=== PATIENT | female | born 1970 | race Caucasian/White ===

== ENCOUNTER 2019-08-23 05:23 | Observation (INO) ==
--- NOTE | 2019-08-17 13:59 | Anesthesiology Consultation ---
Date of Service August 17, 2019 Assessment & Plan (1) Encounter for pre-operative examination: Chart Review Chart Review: Acceptable Risk for Surgery and Patient NOT seen in Pre Admission Testing Will check an ECG on am of surgery for baseline secondary to Age 49 and combined procedure with abdominoplasty. Pre op scopolomine patch ordered for hx PONV Consults Requested none History Surgery Operation Date: 08/23/19 07:30 Proposed Procedures p Bilateral Breast Augmentation with Silicone Implants, - Vicki Zhao MD s Abdominoplasty - Vicki Zhao MD Height/Weight Height: 5 ft 6 in Weight: 61.235 kg Allergies Allergy/AdvReac Type Severity Reaction Status Date / Time No Known Allergies Allergy Verified 08/11/19 08:51 Medications Home Medications Medication Instructions Recorded Confirmed Last Taken L.acid-B.bifidum-B.animal-FOS 100 mg PO DAILY 08/11/19 08/11/19 Unknown [Probiotic Complex] biotin 1 mg PO DAILY 08/11/19 08/11/19 Unknown cephalexin [Keflex] 500 mg PO TID 08/11/19 08/11/19 Unknown cyanocobalamin (vitamin B-12) 1,000 mcg PO DAILY 08/11/19 08/11/19 Unknown [Vitamin B-12] magnesium 250 mg PO DAILY 08/11/19 08/11/19 Unknown bwekheqimwrc-pcaz-igcbr acid 1 tab PO DAILY 08/11/19 08/11/19 Unknown [Centrum Complete] potassium 99 mg PO DAILY 08/11/19 08/11/19 Unknown ondansetron HCl 4 mg tablet 4 mg PO Q6H PRN 3 Days #12 tab 08/16/19 Unknown Past Medical History Medical History Kidney stones Nausea and vomiting after administration of anesthetic agent Past Family History Family History Mother Family history of diabetes mellitus Past Surgical History Surgical History History of bilateral tubal ligation History of lithotripsy S/P laparoscopic hysterectomy Social History Smoking Status: Never smoker Do You Dip or Chew Tobacco: No Hx Alcohol Use: Yes Alcohol type: wine alcohol intake frequency: a few times a month Hx Substance Use: No substance use type: does not use
[2019-08-23] MEDS ORDERED: LR 15ML/HR IV SCH (06:00)
[2019-08-23] MEDS ORDERED: SCOPOLAMINE 1.5 MG TDSY TD SCH (06:00)
[2019-08-23] MEDS ORDERED: MIDAZOLAM HCL 1 MG/ML 2ML VIAL ONE (06:50)
[2019-08-23] MEDS ORDERED: fentaNYL citrate 100 MCG/2 ML VIAL ONE (06:50)
[2019-08-23] MEDS ORDERED: ACETAMINOPHEN 1000 MG/100 ML IV IV ONE (06:52)
[2019-08-23] MEDS ORDERED: LIDOCAINE/EPINEPHRINE 1% 20 ML VIAL ONE ×2 (06:54→08:40)
[2019-08-23] MEDS ORDERED: BUPIVACAINE 0.25% 30 ML VIAL ONE (06:54)
[2019-08-23] MEDS ORDERED: CEFAZOLIN 250 MG/ML 1 GM VIAL ONE ×3 (06:54→12:21)
[2019-08-23] MEDS ORDERED: GENTAMICIN SULFATE 40 MG/ML 2 ML VIAL ONE ×2 (06:54→07:43)
[2019-08-23] MEDS ORDERED: BACITRACIN INJ 50,000 UNIT VIAL ONE ×2 (06:54→07:43)
[2019-08-23] MEDS ORDERED: EPINEPHrine INJ 1 MG/ML AMP ONE (07:00)
--- NOTE | 2019-08-23 07:27 | History & Physical Bridge Note ---
Date of Service August 23, 2019 History & Physical Bridge Note I have examined the patient, reviewed the History & Physical and in the interval since the performance of the History & Physical I have noted the following changes of clinical significance: no changes noted
[2019-08-23] MEDS ORDERED: ATROPINE SULFATE 0.1 MG/ML 10ML SYR IV PRN (07:32)
[2019-08-23] MEDS ORDERED: fentaNYL citrate 100 MCG/2 ML VIAL IV PRN (07:32)
[2019-08-23] MEDS ORDERED: PROMETHAZINE HCL 6.25 MG in SODIUM CHLORIDE 0.9% 50 ML IV PRN (07:32)
[2019-08-23] MEDS ORDERED: ePHEDrine sulfate 50 MG/ML AMP IV PRN (07:32)
[2019-08-23] MEDS ORDERED: ONDANSETRON INJ 2 MG/ML 2 ML VIAL IV PRN ×2 (07:32→12:58)
[2019-08-23] MEDS ORDERED: HYDROmorphone INJ 2 MG/ML SYR/VIAL IV PRN (07:32)
[2019-08-23] MEDS ORDERED: CEFAZOLIN 2,000 MG/15 ML IV PUSH IV ONE (07:37)
[2019-08-23] MEDS ORDERED: KETAMINE HCL INJ 50 MG/ML 10 ML VIAL ONE (07:59)
[2019-08-23] MEDS ORDERED: HYDROmorphone INJ 2 MG/ML SYR/VIAL ONE (07:59)
[2019-08-23] MEDS ORDERED: DiphenhydrAMINE HCL 50 MG/ML VIAL ONE (08:28)
[2019-08-23] MEDS ORDERED: LIDOCAINE HCL 2% 2 ML VIAL/AMP(20MG/ML) INFIL ONE (08:28)
[2019-08-23] MEDS ORDERED: ONDANSETRON INJ 2 MG/ML 2 ML VIAL ONE (08:28)
[2019-08-23] MEDS ORDERED: raNITIdine HCl 25 MG/ML VIAL IV ONE (08:28)
[2019-08-23] MEDS ORDERED: LARYING-O-JET KIT (LTA) ONE (08:28)
[2019-08-23] MEDS ORDERED: ePHEDrine sulfate 50 MG/ML SYR ONE ×2 (08:28→11:36)
[2019-08-23] MEDS ORDERED: ROCURONIUM BROMIDE 10 MG/ML 5 ML VIAL ONE ×3 (08:28→11:36)
[2019-08-23] MEDS ORDERED: GLYCOPYRROLATE 0.2 MG/ML VIAL ONE (08:28)
[2019-08-23] MEDS ORDERED: PROPOFOL IV EMULSION 10 MG/ML 20 ML VIAL IV ONE ×2 (08:28→11:37)
[2019-08-23] MEDS ORDERED: METOCLOPRAMIDE HCL INJ 5 MG/ML 2 ML VIAL ONE (08:28)
[2019-08-23] MEDS ORDERED: NEOSTIGMINE METHYLSULFATE 5 MG/5 ML SYR ONE (11:36)
[2019-08-23] MEDS: LIDOCAINE HCL 1% 20 ML VIAL ONE ×2 (11:55→12:05)
[2019-08-23] MEDS ORDERED: CEFAZOLIN 2000MG 2,000 MG/15 ML SYR IV STA (12:23)
--- NOTE | 2019-08-23 12:41 | Post Operative Brief Note ---
Immediate Post Op Note v1 Date of Surgery August 23, 2019 Pre & Post Diagnosis Operation Date: 08/23/19 07:30 Pre-Op Diagnosis: Encounter for Cosmetic Surgery, Hypomastia Post-Op Diagnosis: Encounter for Cosmetic Surgery, Hypomastia I identified the patient and participated in the time-out.: Yes Procedure Operation Date: 08/23/19 07:30 Actual Procedures p Bilateral Breast Augmentation with Silicone Implants,(Bilateral) - Vicki Zhao MD s Abdominoplasty(Not Applicable) - Vicki Zhao MD Surgeon Vicki Zhao MD Inweaver Analia Zhou PA-C Estimated Blood Loss 20 Findings Consistent with Post-Op Diagnosis Drains Jam Drain (times two implanted per surgeon) and Gramajo Catheter (16 maltese 10ml balloon; patent clean dry intact)
[2019-08-23] MEDS ORDERED: MoRPHine SULFATE 2 MG/ML CARP IV PRN (12:58)
[2019-08-23] MEDS ORDERED: DiphenhydrAMINE HCL 50 MG/ML VIAL IV PRN (12:58)
[2019-08-23] MEDS ORDERED: LORazepam 0.5 MG TAB PO PRN (12:58)
[2019-08-23] MEDS ORDERED: ACETAMINOPHEN 325 MG TAB PO PRN (12:58)
[2019-08-23] MEDS ORDERED: PROMETHAZINE HCL 12.5 MG in SODIUM CHLORIDE 0.9% 50 ML IV PRN (12:58)
[2019-08-23] MEDS ORDERED: MoRPHine SULFATE 4 MG/ML 1 ML CARP\\VIAL IV PRN ×2 (12:58)
[2019-08-23] MEDS ORDERED: OXYCODONE/ACETAMINOPHEN 5mg/325mg TAB PO PRN (12:58)
--- NOTE | 2019-08-23 13:52 | Operative Report ---
PG Post Operative Report Pre & Post Diagnosis Operation Date: 08/23/19 07:30 Pre-Op Diagnosis: Encounter for Cosmetic Surgery, Hypomastia Post-Op Diagnosis: Encounter for Cosmetic Surgery, Hypomastia I identified the patient and participated in the time-out.: Yes Procedure Operation Date: 08/23/19 07:30 Actual Procedures p Bilateral Breast Augmentation with Silicone Implants,(Bilateral) - Vicki Zhao MD s Abdominoplasty(Not Applicable) - Vicki Zhao MD Surgeon Vicki Zhao MD Geodesist Analia Zhou PA-C Estimated Blood Loss 20 Findings Consistent with Post-Op Diagnosis Specimens none Drains JPx2 Anesthesia Type General Complications none Disposition Disposition: Recovery Room Indications s/p 65 lb weight loss, desiring cosmetic improvement in breasts and abdomen Description of Procedure The risks, benefits, and alternatives of the procedure were explained to the patient, who agreed and signed consent. She was identified and marked in the preoperative holding area. She was brought to the operating room, olson catheter was placed, she was positioned supine and placed under general anesthesia without incident. Surgical site was prepped and draped sterilely. A time-out procedure was performed. Tegaderms were placed as a barrier over the nipple-areolar complexes bilaterally. Access incision was marked in the inframammary fold using medial border of the areola as the medial most aspect of the incision. 1% lidocaine with epinephrine was used to anesthetize the planned incisions as well as the breast parenchyma. A 15 blade scalpel was used to make the incision through skin and into underlying dermis. The incision was deepened using electrocautery through subcutaneous fat and breast parenchyma. I planned a dual plane 3 augmentation. The lateral border of the pectoralis major muscle was identified and elevated. A retropectoral pocket was created using lighted retractor and electrocautery. Dissection was first performed superiorly and laterally and then dissection was carried medially along the inframammary fold. Pectoralis major muscle fibers were divided using electrocautery, leaving the pectoralis fascia intact along the inframammary fold. Small tendinous attachments medially were divided using electrocautery, leaving the origin of the pectoralis intact along the sternum. Once I was satisfied with the pocket dissection, hemostasis was achieved with electrocautery. Following this, the wound was irrigated with saline and sizer implants were tried. I initially began with a 325 cc sizer (knowing that she was interested in about a 300 cc implant) which I placed into the pocket. The implant fit nicely into the pocket, closed easily and resulted no ptosis of skin.The sizer was removed, pocket was irrigated and packed using antibiotic soaked lap sponges and Marcaine. A similar dissection was undertaken on the right side. Once I was satisfied with the shape and the pocket size of both breasts, the pockets were inspected for hemostasis and again irrigated with triple antibiotic irrigation. Gloves were changed, instruments were wiped down and I selected a 325 cc smooth round Inspira Natrelle SSF silicone gel implant which was then placed in the left breast pocket. The position was checked and the implant was placed inferiorly as possible along the inframammary fold. Superficial fascia was re-approximated using 2-0 Vicryl interrupted sutures, followed by approximation of deep dermis using 2-0 Vicryl suture, superficial dermis using 3-0 PDS suture and closure of the incision using 3-0 Monocryl running subcuticular suture. An identical implant was selected for the right side and closure was performed in similar fashion. Dermabond was applied to both incisions. I reassessed my markings which included a lower horizontal abdominal incision with the midportion 7.5 cm above the vulvar commissure. Incision was marked bilaterally to the ASIS. I began by injecting 1% lidocaine with epinephrine along the planned incision. The lower abdominal incision was made using a 15- blade scalpel to incise epidermis and superficial dermis followed by electrocautery to incise deep dermis, subcutaneous fat, Rohit's fascia down to the abdominal wall. Care was taken to bevel superiorly in order to avoid encountering the inguinal region. Electrocautery was used to elevate the anterior abdominal skin flap ligating the perforating vessels with 3-0 Vicryl ties and electrocautery. Dissection was carried up to the level of the umbilicus in the midline. At this point, a 15-blade scalpel was used to circumscribe the umbilicus. A vertical midline incision was then made from the incision to the umbilicus and divided in the midline using electrocautery. The umbilicus was then dissected out using electrocautery down to abdominal wall. The umbilical stalk appeared viable throughout the procedure. I then continued my dissection cephalad to the xiphoid process, narrowing the width of dissection above the umbilicus. Plication of the rectus musculature was performed using 0- Prolene buried figure of 8 sutures, and then reinforced using a running 0- Prolene superior and inferior to the umbilicus. At this point, the bed was flexed and the mid portion of the superior skin flap was inset above the mons pubis using 2-0 Vicryl suture. Skin flaps were marked for excision. A 15-blade scalpel was used to make these incisions and the incision was deepened through dermis, subcutaneous fat, Rohit's fat using electrocautery. A 15 Algerian Jam drains were placed in the wound bed and brought out through a separate stab incision in the mons pubis. The drains were sutured into place using 3-0 nylon. The umbilicus was brought out through an inverted triangular incision in the abdominal wall. This was performed using a 15-blade scalpel. Prior to closure, a total of 10 mL of 0.25% Marcaine plain were injected into the fascia as well as along the incisions. Wound closure was then begun lateral to medial using 2-0 Vicryl Rohit's fascia sutures, 2-0 Vicryl deep dermal sutures, 2-0 PDO running superficial Quill suture, 3-0 Monocryl running subcuticular suture. Umbilicus was brought out through the inverted triangle incision and was sutured into place using 4-0 chromic half buried horizontal mattress sutures. The umbilicus was dressed using Xeroform and the incision was dressed using Dermabond Prineo followed by dry dressings and an abdominal binder. A surgical bra was placed. The procedure was tolerated well. The patient was awakened and transferred to recovery in satisfactory condition. Kristel Nichole PA-C was present and scrubbed throughout the entire procedure. I attest to the content of the Intraoperative Record and any orders documented therein. Any exceptions are noted below.
--- NOTE | 2019-08-23 14:22 | Anesthesiology Progress Note ---
Date of Service August 23, 2019 Anesthesia Post Procedure Vital Signs Vital Signs: Temp Pulse Pulse Resp BP BP Pulse Ox 08/23/19 13:35 105 H 16 126/77 98 08/23/19 13:25 36.5 C 104 H 17 127/79 100 08/23/19 13:15 110 H 17 133/81 100 08/23/19 13:05 106 H 16 132/78 100 08/23/19 12:58 36.1 C L 114 H 14 130/87 100 08/23/19 05:39 36.6 C 82 18 144/95 H 100 Transfer of Care Handoff Completed per policy Notes Mental Status: alert / awake / arousable Patient Amnestic to Procedure: Yes Nausea / Vomiting: adequately controlled Pain: adequately controlled Airway Patency, RR, SpO2: stable & adequate BP & HR: stable & adequate Hydration State: stable & adequate Anesthetic Complications: no major complications apparent
[2019-08-23] MEDS: CHECK SCOPOLAMINE PATCH PLACEMENT SCH (16:00)
[2019-08-23] MEDS: D5W AND 1/2NSS + 20MEQ KCL 20 MEQ/1,000 ML BAG IV SCH (18:18)
[2019-08-23] MEDS ORDERED: Nursing to Pharmacy Communication ONE ×2 (18:33→18:52)
[2019-08-23] MEDS ORDERED: ACETAMINOPHEN 1,000 MG/100 ML VIAL IV ONE (19:00)
[2019-08-23] MEDS: HYDROmorphone INJ 0.5 MG/0.5 ML SYR IV PRN (19:06)
[2019-08-23] MEDS ORDERED: CYCLOBENZAPRINE HCL 5 MG TAB PO PRN (19:21)
--- NOTE | 2019-08-23 19:33 | Surgery Progress Note ---
Date of Service August 23, 2019 Assessment & Plan (1) Encounter for cosmetic surgery: Suspect tachycardia due to pain as BP, urine, CLARIBEL output are all ok and no clinical signs of VTE. Ice ordered to breasts, cyclobenzaprine ,Ofirmev, Dilaudid ordered for pain control. Discussed with nursing staff. If tachycardia persists with adequate pain control or signs/sxs of VTE noted, will initiate workup. Subjective Contacted by nursing staff re mild tachycardia. Patient seen at bedside, complaining of pain across the chest, no inspirational pain or shortness of breath, no abdominal pain. Per nursing, olson output 800 cc in bag. Physical Exam Physical Exam: dressings /c/d/i to both breasts and abdomen. CLARIBEL's serosanguinous-amounts not totaled yet but appears minimal Results & Data Vital Signs (Past 12 Hours) Vital Signs Temp Pulse Pulse Resp BP Pulse Ox 08/23/19 17:13 97.9 F 104 H 16 120/77 97 08/23/19 16:17 98.2 F 108 H 16 125/80 97 08/23/19 15:03 97.7 F 108 H 16 124/81 98 08/23/19 14:30 107 H 16 128/77 98 08/23/19 14:00 97.7 F 111 H 16 127/74 100 08/23/19 13:35 105 H 16 126/77 98 08/23/19 13:25 97.7 F 104 H 17 127/79 100 08/23/19 13:15 110 H 17 133/81 100 08/23/19 13:05 106 H 16 132/78 100 08/23/19 12:58 97.0 F L 114 H 14 130/87 100 PG Care Time/CCT Total # of Minutes Spent Total Time Spent with Patient: Total time spent is greater than 50% in coordination of care (as documented) at patient's floor/unit and/or counseling patient:
[2019-08-23] MEDS: CEFAZOLIN 2000MG 2,000 MG/15 ML SYR IV SCH (21:11)
[2019-08-24] MEDS: HYDROmorphone INJ 1 MG/ML SYRINGE IV PRN ×2 (00:12→03:16)
[2019-08-24] MEDS: CHECK SCOPOLAMINE PATCH PLACEMENT SCH (00:13)
[2019-08-24] MEDS ORDERED: ACETAMINOPHEN 1,000 MG/100 ML VIAL IV PRN (02:00)
[2019-08-24] MEDS ORDERED: ACETAMINOPHEN 1,000 MG/100 ML VIAL IV SCH (02:00)
[2019-08-24] MEDS: CEFAZOLIN 2000MG 2,000 MG/15 ML SYR IV SCH (03:17)
[2019-08-24] MEDS: OXYCODONE/ACETAMINOPHEN 5mg/325mg TAB PO PRN ×2 (05:06→11:10)
[2019-08-24] MEDS ORDERED: CEFAZOLIN 2000MG 2,000 MG/15 ML SYR IV SCH (06:00)
[2019-08-24 06:02] LABS: Creatinine Clr Calc Pharmacy 96.5 ml/min; Est GFR (African American) 120.2; Est GFR (Non-African American) 103.7
[2019-08-24] MEDS: HYDROmorphone INJ 0.5 MG/0.5 ML SYR IV PRN (06:09)
--- NOTE | 2019-08-24 06:53 | Surgery Progress Note ---
Date of Service August 24, 2019 Assessment & Plan (1) History of augmentation of both breasts: (2) S/P abdominoplasty: Patient is much improved this AM- pain controlled with both PO and IV pain medication at this time. Patient is aware that she will only have PO pain med at home and will make sure that her pain is controlled with PO pain medication prior to discharge. Patient is leaning towards going home later today, but will need to void on own and make sure that pain is controlled with PO pain med. Gramajo to be removed by nursing and patient to receive Lovenox at 9AM- do not give Lovenox in abdomen. We discussed that drains x 2 will remain at discharge and we reviewed home drain care. She is aware that she is to measure drainage output from each drain. Patient to follow-up in office tomorrow. All questions answered. She was encouraged to call our office with any questions or concerns. Subjective Patient is resting in bed as I entered the room. Heart rate within normal limits this AM. She reports that her pain is much better controlled this morning. She denies any chest pain or shortness of breath. She denies nausea or vomiting. Patient is tolerating a regular diet, but is not very hungry. Physical Exam Physical Exam: Abdominal binder and surgical bra in place- removed for physical exam. Surgical dressings are clean, dry, intact. Patient is understandably sore at incision sites. Surgical dressings in place. Both binders reattached. Results & Data Vital Signs (Past 12 Hours) Vital Signs Temp Pulse Pulse Resp BP Pulse Ox 08/24/19 03:26 37.1 C 82 16 114/76 95 08/24/19 00:18 36.8 C 92 H 18 115/73 97 08/23/19 20:03 36.4 C L 97 H 16 114/76 94 08/23/19 19:40 99 H PG Care Time/CCT Total # of Minutes Spent Total Time Spent with Patient: Total time spent is greater than 50% in coordination of care (as documented) at patient's floor/unit and/or counseling patient:
--- NOTE | 2019-08-24 08:18 | Anesthesiology Progress Note ---
Date of Service August 24, 2019 Anesthesia Post Procedure Vital Signs Vital Signs: Temp Pulse Pulse Resp BP Pulse Ox 08/24/19 07:24 36.4 C L 90 18 114/72 95 08/24/19 03:26 37.1 C 82 16 114/76 95 08/24/19 00:18 36.8 C 92 H 18 115/73 97 08/23/19 20:03 36.4 C L 97 H 16 114/76 94 08/23/19 19:40 99 H 08/23/19 17:13 36.6 C 104 H 16 120/77 97 08/23/19 16:17 36.8 C 108 H 16 125/80 97 08/23/19 15:03 36.5 C 108 H 16 124/81 98 08/23/19 14:30 107 H 16 128/77 98 08/23/19 14:00 36.5 C 111 H 16 127/74 100 08/23/19 13:35 105 H 16 126/77 98 08/23/19 13:25 36.5 C 104 H 17 127/79 100 08/23/19 13:15 110 H 17 133/81 100 08/23/19 13:05 106 H 16 132/78 100 08/23/19 12:58 36.1 C L 114 H 14 130/87 100 Pain Intensity Bilateral Breast: Pain Intensity: 5 Bilateral Abdomen: Pain Intensity: 5 Notes Mental Status: alert / awake / arousable Patient Amnestic to Procedure: Yes Nausea / Vomiting: adequately controlled Pain: adequately controlled Airway Patency, RR, SpO2: stable & adequate BP & HR: stable & adequate Hydration State: stable & adequate Anesthetic Complications: no major complications apparent
[2019-08-24] MEDS: D5W AND 1/2NSS + 20MEQ KCL 20 MEQ/1,000 ML BAG IV SCH (08:28)
[2019-08-24] MEDS ORDERED: MULTIVITAMIN TAB PO SCH (09:00)
[2019-08-24] MEDS ORDERED: ENOXAPARIN INJ 40 MG/0.4 ML SYR SQ SCH (09:00)
[2019-08-25] MEDS ORDERED: ACETAMINOPHEN 500 MG TAB PO SCH (06:00)
--- NOTE | 2019-08-26 14:48 | Discharge Summary ---
Date of Service August 26, 2019 Admission HPI Per Admitting Provider please see admission H and P. Admission Exam Per Admitting Provider please see admission H & P. Principal Diagnosis Encounter for cosmetic surgery. Discharge Data Allergies Allergy/AdvReac Type Severity Reaction Status Date / Time No Known Allergies Allergy Verified 08/23/19 05:37 Procedures Performed Operation Date: 08/23/19 07:30 Actual Procedures p Bilateral Breast Augmentation with Silicone Implants,(Bilateral) - Vicki Zhao MD s Abdominoplasty(Not Applicable) - Vicki Zhao MD Hospital Course (1) History of augmentation of both breasts: (2) S/P abdominoplasty: Pretty is a 48-year-old female who presented to [facility] for Encounter for Cosmetic Surgery. She was taken to the OR and underwent Bilateral Breast Augmentation with Silicone Implants (325 cc smooth round Inspira Natrelle SSF silicone gel implant) and Abdominoplasty. Gramajo catheter was placed prior to start of procedure. Intraoperatively, 2 CLARIBEL drains were placed in the abdomen. There were no intraoperative complications. She was taken to recovery and transferred to med/surg for observation. Roughly [address] Zhao was contacted by nursing staff re mild tachycardia. Patient was seen at bedside, complaining of pain across the chest, no inspirational pain or shortness of breath, no abdominal pain. Mild tachycardia was most likely due to pain and Dr. Zhao adjusted pain medication. On POD #1, she was feeling a bit sore, but was overall doing well. Her vital signs were within normal limits. Patient's pain across the chest had resolved overnight. She was tolerating a regular diet. Gramajo catheter was removed and patient was voiding on her own. She was ambulating without issue. On exam, drains in place. Surgical bra and abdominal binder in place- removed and surgical dressings clean and dry. She was discharged home with instructions to follow-up in the office in 1 day. All questions answered Patient is much improved this AM- pain controlled with both PO and IV pain medication at this time. Patient is aware that she will only have PO pain med at home and will make sure that her pain is controlled with PO pain medication prior to discharge. Patient is leaning towards going home later today, but will need to void on own and make sure that pain is controlled with PO pain med. Gramajo to be removed by nursing and patient to receive Lovenox at 9AM- do not give Lovenox in abdomen. We discussed that drains x 2 will remain at discharge and we reviewed home drain care. She is aware that she is to measure drainage output from each drain. Patient to follow-up in office tomorrow. All questions answered. She was encouraged to call our office with any questions or concerns. Total Time Total Time Spent Total Time Spent (In Minutes): 10 Discharge Plan Discharge Items Patient Disposition: Home - Self-Care Reason For Visit: Encounter for Cosmetic Surgery, Hypomastia Discharge Diagnosis: Encounter for Cosmetic Surgery, Hypomastia Activity: As commented below Non-emergency contact: Surgeon Call non-emergency contact if: you have any medication questions, your pain is not controlled, your temperature is above 101.5, your wound has increased redness and your wound has increased drainage Follow-up/Referrals: Jamilah Dowell [Primary Care Provider] - Diet: Regular Addtl Attending Provider Instructions: ACTIVITY RECOMMENDATIONS: __Normal activities _X_No bending, lifting or straining _X_No driving __Driving allowed when you are off pain medications _X_Walking permitted __You should have help at home for ___ days DRESSINGS: __No dressings required _X_Keep dressings dry/in place until first office visit __Remove dressings ___ and leave dressings off __Apply ice ___ days __Remove dressings and reapply garment __Apply antibiotic ointment (Bacitracin, Neosporin, etc) to wounds 3-4 times/day for 10 days BATHING: _X_Keep dressings dry _X_Sponge bathing permitted- Keep water away from surgical dressings. __Showering permitted _X_No swimming, hot tubs or soaking in a tub MEDICATIONS: Resume previous medications unless instructed otherwise by your surgeon. _X_Do not use aspirin, Motrin, Advil or Ibuprofen as these may promote bleeding. Please use Tylenol. _X_Prescription(s) provided: Prescriptions for both post-operative pain medication and an antibiotic were provided to you at your last office visit. Please use as prescribed. If you have any questions about your medications, please call our office at [phone]. OTHER INSTRUCTIONS: _X_Record drain output 2-3 times per day SPECIAL CARE INSTRUCTIONS: * It is normal to have a mild fever after surgery. If your temperature is higher than 101.5 degrees F, please call the office at [phone]. * Constipation is a typical side effect of pain medication. An atsg-cda-jbzviha stool softener will help relieve this. * Leaking around surgical drains may occur and should not cause concern. Sometimes these drains become clogged. If this happens, remove the bulb and milk the clot out of the tube, then replace the bulb. * Drainage from wounds after liposuction is normal and should be expected. Garments will become soiled. You should protect furniture and bedding. This drainage should mostly subside within 2-3 days. Leave garments in place unless instructed to remove them. * If you have unusual drainage from a wound or are concerned you have an infect ion or have any questions or concerns, please call the office at [phone]. FOLLOW UP VISIT: If not already scheduled, please call the office, , when you return home after surgery to schedule an appointment to be seen in __1_ day. Pending Studies at Discharge: No Stand-Alone Forms: My [facility] [employer], Opioid Pain Management, Smoking Cessation Medications and DC Order Prescriptions: New ondansetron HCl [Zofran] 4 mg tablet 4 mg PO Q6H PRN (Reason: nausea and vomiting) 3 Days Qty: 12 RF: 0 Continued ondansetron HCl [Zofran] 4 mg tablet 4 mg PO Q6H PRN (Reason: nausea and vomiting) 3 Days Qty: 12 RF: 0 cyanocobalamin (vitamin B-12) [Vitamin B-12] 1,000 mcg Tablet 1,000 mcg PO DAILY RF: 0 potassium 99 mg Tablet 99 mg PO DAILY RF: 0 magnesium 250 mg Tablet 250 mg PO DAILY RF: 0 biotin 1 mg Tablet 1 mg PO DAILY RF: 0 Centrum Complete 18-400 mg-mcg Tablet 1 tab PO DAILY RF: 0 Probiotic Complex 25 billion cell -100 mg Capsule 100 mg PO DAILY RF: 0 cephalexin [Keflex] 500 mg capsule 500 mg PO TID RF: 0 acetaminophen [Tylenol Extra Strength] 500 mg Tablet 1,000 mg PO Q6H PRN (Reason: Pain) RF: 0 No Action oxycodone-acetaminophen [Percocet] 5-325 mg tablet 1 tab PO Q4H PRN (Reason: pain) 3 Days Qty: 18 RF: 0 Discharge Orders: Discharge Order (Routine); Ordered 08/24/19 Ordered By: Kristel Jain/Other Patient Handouts: DVT Prevent, Tube Harry Looney Drainage Care Admission Data Admit Date/Time: 08/23/19 13:02 Attending Provider: Vicki Zhao Admit Provider: Vicki Zhao Primary Care Provider: Jamilah Dowell Other Interventions: Discharge Summary Assessment (RN) Last Done: 08/24/19 11:38 DC Date/Time DO NOT enter until pt leaves facility: 08/24/19 13:32
== END 2019-08-24 13:32 | disposition home or self-care (01) ==
LOC: 3W 05:23 → ASU 05:23